=== PATIENT | female | born 1940 | race Native Hawaiian/Other Pacific Islander ===

== ENCOUNTER 2016-07-26 21:37 | Emergency (ER) | payer MEDICARE, OTHER ==
--- NOTE | 2016-07-27 06:59 | RAD ---
EXAMINATION:CHEST - 2 VIEWS CLINICAL INDICATION: Cough and congestion. Difficulty breathing. COMPARISON:none FINDINGS: Heart size is at the upper limits of normal. There is atherosclerosis with aortic ectasia. There is no adenopathy identified. There is no pleural effusion. There are very prominent bronchovascular markings right greater than left. Scoliosis is noted. 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 IMPRESSION: Cardiomegaly with prominent bronchovascular markings. Findings may reflect bronchitis. No lobar pneumonia is identified. Senescent changes are present as stated above.
== END 2016-07-27 00:37 | disposition home or self-care (01) ==
LOC: ED 21:37
DX: J06.9 Acute upper respiratory infection, unspecified (principal); E11.9 Type 2 diabetes mellitus without complications; E03.9 Hypothyroidism, unspecified; E78.5 Hyperlipidemia, unspecified; I10 Essential (primary) hypertension; R01.1 Cardiac murmur, unspecified; Z79.899 Other long term (current) drug therapy; Z88.2 Allergy status to sulfonamides